=== PATIENT | female | born 1970 | race African-American/Black ===

== ENCOUNTER 2017-06-11 05:15 | Day surgery (SDC) | payer OTHER ==
[2017-06-09 11:30] LABS: HEMATOCRIT 38.5 % (36.0-47.0); HGB HCT DIFFERENCE 0.5; MEAN CORPUSCULAR HEMOGLOBIN 31.1 pg (27.0-33.4); MEAN CORPUSCULAR HGB CONC 33.7 g/dL (32.0-36.0); MEAN CORPUSCULAR VOLUME 93 fl (80-97); RED BLOOD COUNT 4.16 10^6/uL (3.72-5.28); RED CELL DISTRIBUTION WIDTH 14.1 % (11.5-14.0); WHITE BLOOD COUNT 4.2 10^3/uL (4.0-10.5)
[2017-06-09 11:32] LABS: APPEARANCE,URINE CLEAR; BILIRUBIN,URINE NEGATIVE (NEGATIVE); GLUCOSE, URINE NEGATIVE (NEGATIVE); KETONES,URINE NEGATIVE (NEGATIVE); LEUKOCYTE ESTERASE,URINE NEGATIVE (NEGATIVE); NITRITE,URINE NEGATIVE (NEGATIVE); PROTEIN,URINE NEGATIVE (NEGATIVE); URINE SPECIFIC GRAVITY 1.004; UROBILINOGEN,URINE NEGATIVE mg/dL (<2.0)
[2017-06-09 12:06] LABS: ANION GAP 9 (5-19); BLOOD UREA NITROGEN 9 mg/dL (7-20); CALCIUM 9.2 mg/dL (8.4-10.2); CARBON DIOXIDE 27 mmol/L (22-30); CHLORIDE 100 mmol/L (98-107); CREATININE RESULT 0.54 mg/dL (0.52-1.25); GLUCOSE 84 mg/dL (75-110); POTASSIUM 3.7 mmol/L (3.6-5.0)
[~2017-06-11 05:15] MED LIST: LACTATED RINGERS 1000 ML IV PRN; LIDOCAINE 0.5% INJ-PF (5 MG/ML) 50 ML SDV SUBCUT PRN
[2017-06-11] MEDS ORDERED: LIDOCAINE 1% INJ-PF (10 MG/ML) 30 ML SDV ONE ×2 (06:04→07:10)
[2017-06-11] MEDS ORDERED: LIDOCAINE 2% INJ-PF (100 MG/5 ML) SYRINGE ONE (06:41)
[2017-06-11] MEDS ORDERED: FENTANYL CITRATE INJ/PF 100 MCG/2 ML AMPUL ONE (06:41)
[2017-06-11] MEDS ORDERED: PROPOFOL INJ 200 MG/20 ML VIAL IV ONE (06:42)
[2017-06-11] MEDS ORDERED: DEXMEDETOMIDINE INJ 80 MCG/20 ML VIAL IV ONE (06:42)
[2017-06-11] MEDS ORDERED: ACETAMINOPHEN 100 ML IV ONE (06:42)
[2017-06-11] MEDS ORDERED: MIDAZOLAM 2 MG/2 ML INJ ONE (06:42)
[2017-06-11] MEDS ORDERED: DIPHENHYDRAMINE HCL 50 MG/ML VIAL IV PRN (07:11)
[2017-06-11] MEDS ORDERED: FENTANYL CITRATE INJ/PF 100 MCG/2 ML AMPUL IV PRN ×2 (07:11)
[2017-06-11] MEDS ORDERED: MEPERIDINE HCL/PF INJ 25 MG/1 ML DISP.SYRIN IV PRN (07:11)
[2017-06-11] MEDS ORDERED: PROMETHAZINE HCL INJ 25 MG/1 ML VIAL IV PRN (07:11)
[2017-06-11] MEDS ORDERED: ONDANSETRON HCL INJ/PF 4 MG/2 ML SDV IV PRN (07:11)
[2017-06-11] MEDS ORDERED: IBUPROFEN 800 MG TABLET PO PRN (08:04)
[2017-06-11] MEDS ORDERED: OXYCODONE-ACETAMINOPHEN 5-325 MG TABLET PO PRN (08:05)
--- NOTE | 2017-06-11 08:22 | OPERATIVE REPORT E ---
Operative Report NAME: ED TAYLOR : 1970 AGE: 46Y DATE OF SURGERY: 06/11/2017 ROOM: PREOPERATIVE DIAGNOSIS: Lost IUD string. POSTOPERATIVE DIAGNOSES: 1. Lost IUD string. 2. Desires reinsertion of a new IUD. PROCEDURES: 1. Hysteroscopic retrieval of lost IUD. 2. IUD insertion. SURGEON: MAXIMINO AJ M.D. COMPLICATIONS: None. ANESTHESIA: LMAC. FINDINGS: That of a string that was all the way up inside above the IUD in a looped fashion. New IUD placed was a Mirena, lot number [id number], expires 10/2019. INDICATIONS FOR PROCEDURE: Patient had multiple attempts at retrieval and IUD. She elected to proceed to a hysteroscopic retrieval and reinsertion in the OR. The usual risks of bleeding, infection, anesthesia, and damage to organs and tissues discussed and the patient understood. DESCRIPTION OF PROCEDURE: The patient was taken to the operating room and was placed in modified lithotomy position. After adequate anesthesia ascertained, EUA performed. Bladder was drained under sterile technique as it was full and uterus was noted to be in a kind of retroverted location. Uterus was sounded and elected to admit an operative hysteroscope. Hysteroscope was inserted. String was identified, flipped up above the IUD nub, and was retrieved with a grasping forceps and brought on the operative field and retrieved and removed. At this point, a new IUD was placed in the usual fashion. String was left long approximately an inch from the cervix. At completion of procedure, instruments were removed. Patient was taken to recovery room in stable condition. DICTATING PHYSICIAN: MAXIMINO AJ M.D. [id number] PHY#: [id number] ID: [id number] JOB#: [id number] ACCT: [id number] cc:MAXIMINO AJ M.D. >
[2017-06-11 10:08] VITALS: BP 143/99
== END 2017-06-11 09:30 | disposition home or self-care (01) ==
LOC: OROUT 05:15
PROVIDERS: ATTEND Specialist
PROC: 0U2DXHZ Change Contraceptive Device in Uterus and Cervix, External Approach (ICD-10-PCS; principal; 2017-06-11 07:15)
DX: Z30.433 Encounter for removal and reinsertion of intrauterine contraceptive device (principal); T83.39XA Other mechanical complication of intrauterine contraceptive device, initial encounter; Y76.3 Surgical instruments, materials and obstetric and gynecological devices (including sutures) associated with adverse incidents
CPT/HCPCS: 36415; 85027; 81025; 80048; 81001; 58579; 58300; J2250; J3010; J2001; J2704; J0131; 952; J3490